=== PATIENT | female | born 1990 | race Caucasian/White ===

== ENCOUNTER → 2021-05-14 07:55 | Observation (INO) ==
[2021-05-13 16:51] LABS: Basophils % 0.3 %; Eosinophils # 0.3 K/mcL (0.0-0.6); Eosinophils % 1.9 %; Hematocrit 39.2 % (35.3-44.9); Hemoglobin 12.8 g/dL (11.5-15.4); Lymphocytes # 2.3 K/mcL (0.6-4.6); Lymphocytes % 16.5 %; Mean Corpuscular HGB Conc 32.7 g/dL (31.6-35.5); Mean Corpuscular Volume 79.7 fL (83.0-100.0); Mean Platelet Volume 10.4 fL (9.4-12.4); Monocytes # 1.1 K/mcL (0.0-1.3); Monocytes % 7.7 %; Neutrophils # 9.9 K/mcL (1.6-8.9); Platelet Count 269 K/mcL (140-400); Red Blood Count 4.92 M/mcL (3.82-4.97); Red Cell Distribution Width 13.3 % (11.5-14.5); Segmented Neutrophils % 72.6 %; White Blood Count 13.7 K/mcL (4.3-11.1)
[2021-05-13 16:59] LABS: Prothrombin Time 11.2 Seconds (9.4-12.1)
[2021-05-13 17:01] LABS: Activated Partial Thrombo Time 30.1 Seconds (26.0-36.0)
[2021-05-13] MEDS: Ringers Solution, Lactated 1,000 ML IVC SCH (19:57)
[2021-05-14] MEDS: Ringers Solution, Lactated 1,000 ML IVC SCH (03:56)
[~2021-05-14 07:55] MED LIST: Aspirin 81 MG TAB.CHEW PO SCH
== END | disposition home or self-care (01) ==
LOC: 1NENULAB
PROVIDERS: ADMIT Obstetrics & Gynecology; ATTEND Obstetrics & Gynecology

== ENCOUNTER 2021-06-28 04:49 | Inpatient (IN) ==
[2021-06-28] MEDS ORDERED: Metoclopramide 10 MG/2 ML VIAL IVP PRN ×2 (04:57→13:08)
[2021-06-28] MEDS ORDERED: Famotidine 20 MG/2 ML VIAL IVP PRN (04:57)
[2021-06-28] MEDS ORDERED: Naloxone 0.4 MG/ML INJ IVP PRN (04:57)
[2021-06-28] MEDS ORDERED: Azithromycin 500 MG in 0.9 % Sodium Chloride 250 ML IVPB PRN (04:57)
[2021-06-28] MEDS ORDERED: Ringers Solution, Lactated 1,000 ML IVC ONE (04:57)
[2021-06-28] MEDS ORDERED: Ringers Solution, Lactated 1,000 ML IVC SCH ×2 (05:00→13:08)
[2021-06-28 05:41] LABS: Basophils % 0.3 %; Eosinophils # 0.2 K/mcL (0.0-0.6); Eosinophils % 1.8 %; Hematocrit 38.9 % (35.3-44.9); Hemoglobin 12.5 g/dL (11.5-15.4); Immature Granulocytes % 0.8 % (0-4); Lymphocytes # 2.2 K/mcL (0.6-4.6); Mean Corpuscular HGB Conc 32.1 g/dL (31.6-35.5); Mean Corpuscular Hemoglobin 24.7 pg (28.0-33.3); Mean Corpuscular Volume 76.9 fL (83.0-100.0); Mean Platelet Volume 10.3 fL (9.4-12.4); Monocytes # 0.9 K/mcL (0.0-1.3); Monocytes % 8.2 %; Neutrophils # 7.7 K/mcL (1.6-8.9); Platelet Count 300 K/mcL (140-400); Red Blood Count 5.06 M/mcL (3.82-4.97); Red Cell Distribution Width 14.2 % (11.5-14.5); Segmented Neutrophils % 68.9 %; White Blood Count 11.2 K/mcL (4.3-11.1)
[2021-06-28 06:18] LABS: Influenza A PCR Negative (Negative); Influenza B PCR Negative (Negative); Resp. Syncytial Virus PCR Negative (Negative)
[2021-06-28 06:24] LABS: SARS-CoV-2 by PCR (In House) Negative (Negative)
[2021-06-28] MEDS ORDERED: *HR* HYDROmorphone PF 0.5 MG/0.5 ML SYRINGE IVP PRN (07:20)
[2021-06-28] MEDS ORDERED: Ondansetron 4 MG/2 ML VIAL IVP PRN ×2 (07:20→13:08)
[2021-06-28] MEDS ORDERED: Promethazine 6.25 MG in Water for inj. (sterile) 20 ML IVPB PRN (07:20)
[2021-06-28] MEDS ORDERED: Oxytocin 30 UNIT/503 ML BAG IVC ONE (07:23)
[2021-06-28] MEDS ORDERED: CeFAZolin 2,000 MG/120 ML BAG IVPB ONE (07:26)
[2021-06-28] MEDS ORDERED: Simethicone 80 MG TAB.CHEW PO PRN (13:08)
[2021-06-28] MEDS ORDERED: Rho Immune Globulin 1,500 UNIT SYRINGE IM ONE (13:08)
[2021-06-28] MEDS: Ibuprofen 600 MG TABLET PO SCH ×2 (13:31→19:02)
[2021-06-28] MEDS: Acetaminophen 325 MG TABLET PO SCH ×2 (13:32→19:02)
[2021-06-28] MEDS: *HR* OxyCODONE Immed Rel 5 MG TABLET PO PRN (15:38)
[2021-06-29] MEDS: Ibuprofen 600 MG TABLET PO SCH ×4 (01:30→20:08)
[2021-06-29] MEDS: Acetaminophen 325 MG TABLET PO SCH ×4 (01:30→20:08)
[2021-06-29] MEDS: *HR* OxyCODONE Immed Rel 5 MG TABLET PO PRN ×3 (04:03→17:53)
[2021-06-29 04:41] LABS: Basophils % 0.2 %; Eosinophils % 0.2 %; Hematocrit 31.9 % (35.3-44.9); Immature Granulocytes % 0.9 % (0-4); Lymphocytes # 2.5 K/mcL (0.6-4.6); Lymphocytes % 15.8 %; Mean Corpuscular Hemoglobin 24.7 pg (28.0-33.3); Mean Corpuscular Volume 77.2 fL (83.0-100.0); Mean Platelet Volume 10.6 fL (9.4-12.4); Monocytes # 1.5 K/mcL (0.0-1.3); Monocytes % 9.1 %; Neutrophils # 11.9 K/mcL (1.6-8.9); Platelet Count 239 K/mcL (140-400); Red Blood Count 4.13 M/mcL (3.82-4.97); Red Cell Distribution Width 14.3 % (11.5-14.5); Segmented Neutrophils % 73.8 %; White Blood Count 16.1 K/mcL (4.3-11.1)
[2021-06-29 04:45] LABS: Hemoglobin 10.2 g/dL (11.5-15.4)
[2021-06-29] MEDS: *HR* Enoxaparin 60 MG/0.6 ML SYRINGE SQ SCH ×2 (05:42→17:45)
[2021-06-29] MEDS: Prenatal Vit/FA 1 EACH TABLET PO SCH (08:21)
[2021-06-29] MEDS ORDERED: NON-FORMULARY MEDICATION 1 EACH EACH (Pnv No.95/Ferrous Fum/Folic Ac [Prenatal Caplet] 1 E PO SCH (09:00)
[2021-06-29 20:21] VITALS: O2SAT 97
[2021-06-30] MEDS: Acetaminophen 325 MG TABLET PO SCH ×3 (02:08→15:04)
[2021-06-30] MEDS: Ibuprofen 600 MG TABLET PO SCH ×3 (02:08→15:04)
[2021-06-30] MEDS: *HR* Enoxaparin 60 MG/0.6 ML SYRINGE SQ SCH (05:54)
[2021-06-30] MEDS: *HR* OxyCODONE Immed Rel 5 MG TABLET PO PRN ×2 (05:55→09:32)
[2021-06-30 07:24] VITALS: BP 126/79; PULSE 79; TEMP 98.2
[2021-06-30] MEDS: Prenatal Vit/FA 1 EACH TABLET PO SCH (09:32)
== END 2021-06-30 18:29 | disposition home or self-care (01) | DRG 784 ==
LOC: 1NENULAB 04:49 → 1NENUOBS 13:23
PROVIDERS: ADMIT Student in an Organized Health Care Education/Training Program; ATTEND Student in an Organized Health Care Education/Training Program